=== PATIENT | male | born 1990 | race Two or more races ===

== ENCOUNTER 2017-07-05 14:49 | Emergency (ER) | payer MEDICAID ==
[~2017-07-05] VITALS: Ht 175.3 cm; Wt 86.7 kg
[2017-07-05] MEDS ORDERED: SODIUM CHLORIDE 0.9% 1,000ML IVBOLUS ONE (15:30)
[2017-07-05] MEDS ORDERED: SODIUM CHLORIDE FLUSH 10ML SYR IVF ONE (15:30)
[2017-07-05] MEDS ORDERED: ONDANSETRON 2MG/ML, 2ML IVPush ONE (15:30)
[2017-07-05] MEDS ORDERED: FAMOTIDINE 20 MG/2 ML IVP ONE (15:30)
[2017-07-05 15:44] LABS: HEMATOCRIT 47.2 % (39.2-51.8); HEMOGLOBIN 16.1 g/dL (13.7-18.0); WHITE BLOOD COUNT 5.5 x10^3/uL (3.4-10)
[2017-07-05] MEDS ORDERED: FAMOTIDINE 20 MG TABLET ONE (15:57)
[2017-07-05] MEDS ORDERED: MAALOX/HYOSCYAMINE/LIDOCAINE 45 ML BTL ONE (15:57)
[2017-07-05 15:58] LABS: BLOOD UREA NITROGEN 12 mg/dL (7-18)
[2017-07-05] MEDS ORDERED: MAALOX/HYOSCYAMINE/LIDOCAINE 45 ML BTL PO ONE (16:00)
[2017-07-05] MEDS ORDERED: FAMOTIDINE 20 MG TABLET PO ONE (16:00)
[2017-07-05 16:01] LABS: ASPARTATE AMINO TRANSFERASE 15 U/L (15-37)
[2017-07-05 18:56] VITALS: BP 110/75
== END 2017-07-05 18:59 | disposition home or self-care (01) ==
LOC: ED 16:05
DX: K25.3 Acute gastric ulcer without hemorrhage or perforation (principal); K26.3 Acute duodenal ulcer without hemorrhage or perforation; B96.81 Helicobacter pylori [H. pylori] as the cause of diseases classified elsewhere; K21.9 Gastro-esophageal reflux disease without esophagitis; J45.909 Unspecified asthma, uncomplicated
CPT/HCPCS: 36415; 74020; 76700; 80053; 83690; 85025; 86677; 99285